=== PATIENT | male | born 1985 | race Caucasian/White ===

== ENCOUNTER 2020-05-27 07:23 | Outpatient (CLI) | payer SELFPAY ==
[2020-06-01 06:52] LABS: SARS-CoV-2 RNA Undetected (Undetected); SARS-CoV-2 Specimen Source Nasopharynx
== END 2020-05-27 07:43 ==
PROVIDERS: PCP Nurse Practitioner Family; Visit Provider Family Medicine
DX: Z20.828 Contact with and (suspected) exposure to other viral communicable diseases (principal)
CPT/HCPCS: U0003

== ENCOUNTER 2021-12-18 13:47 | Emergency (ER) | payer SELFPAY ==
[2021-12-18 14:06] VITALS: BP 162/87; PULSE 108; RESP 18; TEMP 37.1; O2SAT 99
--- NOTE | 2021-12-18 14:26 | ED.GENADUL_ITS ---
Discharge Plan Disposition Patient Disposition: HOME Condition: Stable Discharge Details Clinical Impression: Laceration of right thigh Primary Care Provider: Nadia Cornejo ED Provider: Maren Jensen Home Meds and New Rx's Prescriptions: No Action ibuprofen 600 MG tablet 600 mg PO TID PRN PRNQty: 30 RF: 0 cyclobenzaprine 10 MG tablet 10 mg PO TID PRN PRNQty: 14 RF: 0 Discharge Instructions Instructions: Laceration (ED) Additional Instructions: Have sutures removed in 7 days. Keep clean and dry. After 12 to 24 hours you may wash in a running soap and water. No soaking. Please return sooner for any signs of infection including red streaks, drainage, fever. The numbing medicine will wear off in approximately 2 hours. Follow up with primary care provider in 3-5 days. Return to ED sooner if any worsening or concerns. Increase oral fluids. Please take Tylenol or Ibuprofen with food every 4-6 hours as needed for pain and swelling. Stand Alone Forms: Work Release Referrals: Nadia Cornejo [Primary Care Provider] - 1 week Medical Decision Making 36-year-old male presents to the ER with chief complaint of right anterior thigh laceration. This occurred approximately an hour prior to arrival. He was at work when he accidentally stabbed himself with a utility knife. He has approximately 1 cm laceration to the distal right anterior thigh. Bleeding is controlled upon arrival. He has full range of motion noted to his knee. He reports his last tetanus shot was greater than 10 years ago. No other complaints or signs of injury at this time. Laceration was anesthetized with 1% lidocaine with epi, anesthesia achieved. Wound was irrigated with sterile normal saline, and scrubbed with chlorhexidine. Patient tolerated well. 3 simple interrupted sutures with 4-0 Ethilon placed under sterile procedure. Wound was well approximated. Patient be discharged home with wound care and instructed to have sutures removed in 7 days. Nonadherant dressing applied by research staff member prior to DC. HPI General Mode of arrival: ambulatory . Date/Time Provider Initiated Documentation: 12/18/21 14:05 . Limitations to Documentation: no limitations . Information obtained by: patient and RN notes reviewed . HPI Narrative: 36-year-old male presents to the ER with chief complaint of right anterior thigh laceration. This occurred approximately an hour prior to arrival. He was at work when he accidentally stabbed himself with a utility knife. He has approximately 1 cm laceration to the distal right anterior thigh. Bleeding is controlled upon arrival. He has full range of motion noted to his knee. He reports his last tetanus shot was greater than 10 years ago. No other complaints or signs of injury at this time. Related Data Home Medications Medication Instructions Recorded Confirmed cyclobenzaprine 10 mg PO TID PRN PRN #14 tab 06/16/15 ibuprofen 600 mg PO TID PRN PRN #30 tablet 06/16/15 Previous Rx's Medication Instructions Recorded cyclobenzaprine 10 mg PO TID PRN PRN #14 tab 06/16/15 ibuprofen 600 mg PO TID PRN PRN #30 tablet 06/16/15 Allergies Allergy/AdvReac Type Severity Reaction Status Date / Time No Known Allergies Allergy Unverified 06/16/15 13:11 General Stated Complaint: Laceration MARVIN: 4 Review of Systems All systems reviewed & are unremarkable except as noted in HPI and below PFSH All Active Problems (Updated 12/18/21 @ 15:06 by Maren Jensen) Laceration of right thigh (Acute) Social History Smoking/Tobacco Use Status: Former Tobacco Use Smoking risk assessment performed?: Yes Alcohol Intake: current Alcohol Intake frequency: a few times a month Drug use: Rarely Substance use type: does not use Do you feel safe at home: Yes Do you feel safe in your relationship?: Yes Exam Extrem Upper/lower leg/hip images: 1. Approximately 1 cm laceration noted to right anterior thigh, bleeding controlled Course Vital Signs Vital signs: Vital Signs Temperature 37.1 C 12/18/21 14:06 Pulse 108 H 12/18/21 14:06 Respiratory Rate 18 12/18/21 14:06 Blood Pressure 162/87 H 12/18/21 14:06 Pulse Oximetry 99 12/18/21 14:06 Temperature 37.1 C 12/18/21 14:06 Temperature Source Tympanic 12/18/21 14:06 Pulse 108 H 12/18/21 14:06 Respiratory Rate 18 12/18/21 14:06 Respiratory Effort 12/18/21 14:09 Blood Pressure 162/87 H 12/18/21 14:06 Blood Pressure Position Supine 12/18/21 14:06 Pulse Oximetry 99 12/18/21 14:06 Oxygen Delivery Method Room Air 12/18/21 14:06 Oxygen Flow Rate 0 12/18/21 14:06 Pain Level 4 12/18/21 14:06 Procedures Laceration Laceration 1: Site: lower extremity Side (If applicable): right Size (cm): 1.5 Description: linear and clean Depth: simple, single layer Local Anesthetic: Lidocaine 1% and with Epi Amount of anesthesia used (mL): 2 Pre-repair: wound explored, irrigated extensively and deep structures intact Skin layer closed with: nylon Size (cm): 4-0 Number of sutures: 3 Technique: simple, interrupted
[2021-12-18 15:11] VITALS: BP 126/101; PULSE 98; RESP 17; TEMP 36.6; O2SAT 96
== END 2021-12-18 15:19 | disposition home or self-care (01) ==
PROVIDERS: Emergency Provider Registered Nurse Emergency; PCP Nurse Practitioner Family
DX: S71.111A Laceration without foreign body, right thigh, initial encounter (principal); W26.0XXA Contact with knife, initial encounter; Y99.0 Civilian activity done for income or pay
CPT/HCPCS: 12001; 90471

== ENCOUNTER 2021-12-25 08:35 | Emergency (ER) | payer SELFPAY ==
--- OUTSIDE RECORDS SUMMARY | 2021-12-25 08:40 | XMS_ITS ---
:1985 Author Care Team Providers Name Role Phone HARPREET MACIAS Primary Care Provider [phone] HARPREET MACIAS Referring Provider [phone] Allergies Code Code System Name Reaction Severity Status Onset 449485 RxNorm Cabbage Abdominal Pain Mild to Active ? Moderate NKDA ? Medications Name Status Start Date Stop Date ? ? cimetidine 400 mg tablet Active ? Not cecy ilable 1 po qid cyclobenzaprine 10 mg tablet Completed ? Drysol Dab-O-Matic 20 % topical solution Active ? Not available Apply 1 application every day by topical route in the morning f or 30 days. ibuprofen 600 mg tablet Completed ? 07/07/20 16 vitamin B complex Active ? Not available take 1 tablet by oral route daily Problems Name Status Onset Date Source ? Adult Health Examination Active ? ? Procedures Date Name Performed by ? ? Oral Surgery Procedure Information not a vailable Notes: Hickman teeth removal Results Lab Results None recorded. Past Encounters None recorded. Social History Tobacco Smoking Status Former Smoker Notes: 017, 02/02/17,03/09/17, 06/25/17 1 cig a maryam h Vaccine List Vaccine Type Tdap 06/09/2009 Plan of Care Reminders Provider Appointments None ? ? recorded. Lab None ? ? recorded. Referral None ? ? recorded. Procedures None ? ? recorded. Surgeries None ? ? recorded. Imaging None ? ? recorded. Vitals 08/10/2017 04:00PM FOLLOW UP Height Weight BMI Blood Pressure 181.61 cm 100.7 kg 30.5 kg/m2 122/70 mm[Hg] 07/06/2017 04:00PM FOLLOW UP Height Weight BMI Blood Pressure 181.61 cm 100.7 kg 30.5 kg/m2 118/60 mm[Hg] 06/25/2017 10:20AM ER F/U - ESTABLISHED Height Weight BMI Blood Pressure 181.61 cm 100.7 kg 30.5 kg/m2 123/82 mm[Hg] 05/20/2017 03:30PM FOLLOW UP Height Weight BMI Blood Pressure 181.61 cm 101.15 kg 30.7 kg/m2 118/72 mm[Hg] 04/15/2017 02:45PM FOLLOW UP Height Weight BMI Blood Pressure 181.61 cm 100.24 kg 30.4 kg/m2 124/68 mm[Hg] 03/09/2017 03:30PM FOLLOW UP Height Weight BMI Blood Pressure 181.61 cm 100.24 kg 30.4 kg/m2 130/70 mm[Hg] 02/02/2017 03:30PM FOLLOW UP Height Weight BMI Blood Pressure 181.61 cm 100.7 kg 30.5 kg/m2 140/80 mm[Hg] 12/30/2016 03:30PM FOLLOW UP Height Weight Blood Pressure 181.61 cm 128/78 mm[Hg] 11/23/2016 03:30PM FOLLOW UP Height Weight BMI Blood Pressure 181.61 cm 101.15 kg 30.7 kg/m2 128/62 mm[Hg] 10/13/2016 03:30PM FOLLOW UP Height Weight BMI Blood Pressure 181.61 cm 101.15 kg 30.7 kg/m2 130/78 mm[Hg] 09/15/2016 04:00PM FOLLOW UP Height Weight BMI Blood Pressure 181.61 cm 100.7 kg 30.5 kg/m2 110/62 mm[Hg] 09/02/2016 09:30AM ACUTE - ESTABLISHED Height Weight BMI Blood Pressure 181.61 cm 101.15 kg 30.7 kg/m2 120/72 mm[Hg] 08/26/2016 04:00PM FOLLOW UP Height Weight BMI Blood Pressure 181.61 cm 100.7 kg 30.5 kg/m2 110/60 mm[Hg] 07/28/2016 12:30PM FOLLOW UP Height Weight BMI Blood Pressure 181.61 cm 102.51 kg 31.1 kg/m2 120/72 mm[Hg] 07/07/2016 04:00PM NEW PATIENT Height Weight BMI Blood Pressure 181.61 cm 101.15 kg 30.7 kg/m2 132/72 mm[Hg]
--- NOTE | 2021-12-25 08:41 | ED.GENADUL_ITS ---
Discharge Plan Disposition Patient Disposition: HOME Condition: Good Discharge Details Clinical Impression: Encounter for removal of sutures Primary Care Provider: Nadia Cornejo ED Provider: Teja Akins Home Meds and New Rx's Prescriptions: Continued ibuprofen 600 MG tablet 600 mg PO TID PRN PRNQty: 30 0RF cyclobenzaprine 10 MG tablet 10 mg PO TID PRN PRNQty: 14 0RF Discharge Instructions Additional Instructions: At this time ear laceration looks excellent. Please avoid any significant stress or strain to the area as it can cause some continued tissue damage as you heal. The sutures were removed, and a small amount of Dermabond was placed for additional strength during healing. If you notice any redness, drainage, or sign s of ripping please return immediately for reassessment. If you notice any worsening of your symptoms, or any new symptoms such as vomiting, diarrhea, fever, chills, shortness of breath, chest pain, numbness, weakness, or fainting , please return immediately to the emergency department for reevaluation. Please follow up with your primary care provider as soon as possible for reassessment and reevaluation. As always, it was a pleasure participating in your medical care today. Referrals: Nadia Cornejo [Primary Care Provider] - Medical Decision Making This is a pleasant 36-year-old male who presents today for suture removal. 7 days ago he had a laceration to his right thigh. He has had no redness or drainage since then. He has been doing well. No pain at the site. No other complaints at this time. Skin demonstrates excellent healing, appropriate for suture removal at this time. 3 sutures were removed without complication. Small amount of Dermabond was placed for additional strength during this time of healing secondary to the location of the laceration/sutured site. Discussed red flags for which to return. I have extensively reviewed the treatment plan and discharge instructions with the patient. I have addressed all patient concerns at this time. The patient was made aware of what symptoms to monitor for that would warrant a return to the emergency department. Discussed the plan with the patient, they demonstrate verbal understanding and agreement with our assessment and plan at this time. The documentation in this chart was dictated using [employer] dictation software. Please excuse any dictation errors. HPI General Date/Time Provider Initiated Documentation: 12/25/21 08:36 . HPI Narrative: This is a pleasant 36-year-old male who presents today for suture removal. 7 days ago he had a laceration to his right thigh. He has had no redness or drainage since then. He has been doing well. No pain at the site. No other complaints at this time. Related Data Home Medications Medication Instructions Recorded Confirmed cyclobenzaprine 10 mg tablet 10 mg PO TID PRN PRN #14 tab 06/16/15 ibuprofen 600 mg tablet 600 mg PO TID PRN PRN #30 tablet 06/16/15 Previous Rx's Medication Instructions Recorded cyclobenzaprine 10 mg tablet 10 mg PO TID PRN PRN #14 tab 06/16/15 ibuprofen 600 mg tablet 600 mg PO TID PRN PRN #30 tablet 06/16/15 Allergies Allergy/AdvReac Type Severity Reaction Status Date / Time No Known Allergies Allergy Unverified 06/16/15 13:11 General Stated Complaint: SutureRem MARVIN: 5 Review of Systems Narrative: 10 point review of systems was performed, pertinent positives and negatives are noted in the history of present illness. All others were otherwise negative. PFSH All Active Problems Laceration of right thigh (Acute) Encounter for removal of sutures (Acute) Social History Smoking/Tobacco Use Status: Former Tobacco Use Smoking risk assessment performed?: Yes Alcohol Intake: current Alcohol Intake frequency: a few times a month Drug use: Rarely Substance use type: does not use Do you feel safe at home: Yes Do you feel safe in your relationship?: Yes Exam Narrative Exam Narrative: Skin demonstrate excellent healing from where his previous laceration was. 3 sutures are intact. No redness, drainage, or warmth. No evidence of dehiscence. Course Vital Signs Vital signs: Respiratory Effort Non-Labored 12/25/21 08:39
[2021-12-25 08:42] VITALS: BP 130/84; PULSE 72; RESP 15; TEMP 36.7; O2SAT 99
== END 2021-12-25 08:56 | disposition home or self-care (01) ==
PROVIDERS: Emergency Provider Student in an Organized Health Care Education/Training Program; PCP Nurse Practitioner Family
DX: S71.111D Laceration without foreign body, right thigh, subsequent encounter (principal); X58.XXXD Exposure to other specified factors, subsequent encounter; Z48.02 Encounter for removal of sutures